=== PATIENT | male | born 1990 | race African-American/Black ===

== ENCOUNTER 2020-09-20 00:39 | Emergency (ER) | payer OTHER ==
[~2020-09-20] VITALS: Ht 180.3 cm; Wt 80.5 kg
[2020-09-20 00:51] VITALS: Ht 180.3 cm; Wt 80.5 kg
[2020-09-20 04:44] VITALS: BP 123/68
== END 2020-09-20 04:44 | disposition home or self-care (01) ==
LOC: ED 00:39
DX: D57.00 Hb-SS disease with crisis, unspecified (principal); J45.909 Unspecified asthma, uncomplicated; Z88.1 Allergy status to other antibiotic agents
CPT/HCPCS: J1170

== ENCOUNTER 2020-09-20 18:01 | Emergency (ER) | payer OTHER ==
[~2020-09-20] VITALS: Ht 180.3 cm; Wt 80.7 kg
[2020-09-20 18:09] VITALS: Ht 180.3 cm; Wt 80.7 kg
[2020-09-20 20:14] VITALS: BP 132/80
== END 2020-09-20 20:14 | disposition home or self-care (01) ==
LOC: ED 18:01
DX: D57.00 Hb-SS disease with crisis, unspecified (principal); G89.29 Other chronic pain; J45.909 Unspecified asthma, uncomplicated; Z88.1 Allergy status to other antibiotic agents
CPT/HCPCS: J1885; J2270

== ENCOUNTER 2020-09-21 09:29 | Emergency (ER) | payer OTHER ==
[~2020-09-21] VITALS: Ht 180.3 cm; Wt 82.1 kg
[2020-09-21 09:36] VITALS: Ht 180.3 cm; Wt 82.1 kg
[2020-09-21 12:29] LABS: CALCIUM 9.2 mg/dL (8.5-10.1); CARBON DIOXIDE 30.6 mmol/L (21-32); CHLORIDE SERUM 104 mmol/L (98-107); CREATININE SERUM 0.7 mg/dL (0.7-1.3); GFR1 > 60 mL/min; GLUCOSE SERUM 118 mg/dL (74-106); SODIUM SERUM 143 mmol/L (136-145)
[2020-09-21 12:34] LABS: ALKALINE PHOSPHATASE 78 U/L (46-116); ALT/SGPT 44 U/L (16-63); AST/SGOT 29 U/L (15-37); TOTAL PROTEIN, SERUM 7.2 g/dL (6.4-8.2)
[2020-09-21 12:54] LABS: BASOPHIL % 0.8 % (0.2-1.5); PLATELET COUNT 360 x10^3mcL (152-348); RED BLOOD CELLS 3.73 M/mm3 (4.52-5.90)
[2020-09-21 13:03] LABS: RED CELL DISTRIBUTION WIDTH 15.9 % (12.1-16.2)
[2020-09-21 14:50] VITALS: BP 117/80
== END 2020-09-21 14:50 | disposition home or self-care (01) ==
LOC: ED 09:29
PROVIDERS: Emergency Medicine
DX: D57.1 Sickle-cell disease without crisis (principal); J45.909 Unspecified asthma, uncomplicated; E03.9 Hypothyroidism, unspecified; Z88.1 Allergy status to other antibiotic agents
CPT/HCPCS: J1170; J7030

== ENCOUNTER 2020-10-01 12:49 | Emergency (ER) | payer OTHER ==
[~2020-10-01] VITALS: Ht 180.3 cm; Wt 78.9 kg
[2020-10-01 12:59] VITALS: Ht 180.3 cm; Wt 78.9 kg
[2020-10-01 15:29] VITALS: BP 112/74
== END 2020-10-01 15:29 | disposition home or self-care (01) ==
LOC: ED 12:49
DX: M25.511 Pain in right shoulder (principal); M25.512 Pain in left shoulder; M25.552 Pain in left hip; M25.551 Pain in right hip; J45.909 Unspecified asthma, uncomplicated; E03.9 Hypothyroidism, unspecified; Z88.1 Allergy status to other antibiotic agents
CPT/HCPCS: J1200; J2270; Q0162

== ENCOUNTER 2020-10-03 21:21 | Emergency (ER) | payer OTHER ==
[~2020-10-03] VITALS: Ht 180.3 cm; Wt 82.1 kg
[2020-10-03 21:44] VITALS: Ht 180.3 cm; Wt 82.1 kg
[2020-10-04 00:54] LABS: BASOPHIL % 1.3 % (0.2-1.5); RED BLOOD CELLS 4.18 M/mm3 (4.52-5.90)
[2020-10-04 00:57] LABS: PLATELET COUNT 445 x10^3mcL (152-348); RED CELL DISTRIBUTION WIDTH 15.5 % (12.1-16.2)
[2020-10-04 01:13] LABS: CALCIUM 9.8 mg/dL (8.5-10.1); CARBON DIOXIDE 27.1 mmol/L (21-32); CHLORIDE SERUM 104 mmol/L (98-107); CREATININE SERUM 0.8 mg/dL (0.7-1.3); GFR1 > 60 mL/min; GLUCOSE SERUM 93 mg/dL (74-106); POTASSIUM SERUM 3.5 mmol/L (3.5-5.1); SODIUM SERUM 141 mmol/L (136-145)
[2020-10-04 01:21] LABS: ALBUMIN 4.5 g/dL (3.4-5.0); ALKALINE PHOSPHATASE 85 U/L (46-116); ALT/SGPT 37 U/L (16-63); AMYLASE 97 U/L (25-115); AST/SGOT 35 U/L (15-37); BILIRUBIN TOTAL 0.44 mg/dL (0.20-1.00); LIPASE 128 IU/L (73-393)
[2020-10-04 01:22] LABS: TOTAL PROTEIN, SERUM 8.3 g/dL (6.4-8.2)
[2020-10-04 02:31] VITALS: BP 126/65
== END 2020-10-04 02:31 | disposition home or self-care (01) ==
LOC: ED 21:21
PROVIDERS: Emergency Medicine
DX: D57.1 Sickle-cell disease without crisis (principal)
CPT/HCPCS: J2405; J3010; J3490; J7030

== ENCOUNTER 2020-10-17 01:42 | Emergency (ER) | payer OTHER ==
[~2020-10-17] VITALS: Ht 180.3 cm; Wt 80.3 kg
[2020-10-17 01:56] VITALS: Ht 180.3 cm; Wt 80.3 kg
[2020-10-17 04:21] VITALS: BP 120/69
== END 2020-10-17 04:21 | disposition home or self-care (01) ==
LOC: ED 01:42
DX: G89.29 Other chronic pain (principal); M87.852 Other osteonecrosis, left femur; M87.851 Other osteonecrosis, right femur; E03.9 Hypothyroidism, unspecified; J45.909 Unspecified asthma, uncomplicated; Z86.2 Personal history of diseases of the blood and blood-forming organs and certain disorders involving the immune mechanism; Z88.1 Allergy status to other antibiotic agents
CPT/HCPCS: J2270; J3490; J7030

== ENCOUNTER 2020-10-25 17:31 | Emergency (ER) | payer OTHER ==
[~2020-10-25] VITALS: Ht 180.3 cm; Wt 79.8 kg
[2020-10-25 20:07] LABS: UA SPECIFIC GRAVITY >=1.030 (1.005-1.035); microscopic required? YES; urine erythrocyte 2+ (NEGATIVE)
[2020-10-25 21:25] VITALS: BP 126/79
== END 2020-10-25 21:32 | disposition home or self-care (01) ==
LOC: ED 17:31
PROVIDERS: Emergency Medicine
DX: D57.1 Sickle-cell disease without crisis (principal); J45.909 Unspecified asthma, uncomplicated; E03.9 Hypothyroidism, unspecified; Z98.890 Other specified postprocedural states; Z88.8 Allergy status to other drugs, medicaments and biological substances
CPT/HCPCS: J2270; J2405; J3010; J3490; J7030